=== PATIENT | female | born 1955 | race Caucasian/White ===

== ENCOUNTER → 2017-08-26 | Day surgery (SDC) | payer BC ==
[~2017-08-26] MED LIST: ACETAMINOPHEN 1000 MG/100 ML 100 ML IV ONE; BUPIVACAINE/EPINEPHRINE 0.25% PF 30 ML VIAL ONE; KETOROLAC TROMETHAMINE 30 MG/ML (IVP) VIAL IV PUSH ONE; LACTATED RINGER'S 1000 ML INJ 1,000 ML ONE; LIDOCAINE 2%/EPINEPHrine PF 1:200,000 20ML SDV ONE; MIDAZOLAM HCL 2 MG/2 ML VIAL ONE; ONDANSETRON HCL 4 MG/2 ML VIAL IV PUSH ONE; PROPOFOL 200 MG/20 ML AMP IV ONE; VANCOMYCIN HCL 1000 MG VIAL ONE
--- NOTE | 2017-08-26 10:15 | TN ---
cc: ZHAO SOOD M.D. DATE OF SURGERY 08/26/2017 PREOPERATIVE DIAGNOSES 1. Umbilical hernia. 2. Deep subcutaneous masses right upper abdomen. 3. Three deep subcutaneous masses left upper abdomen and left flank, all measuring 3 cm piece. POSTOPERATIVE DIAGNOSES 1. Umbilical hernia. 2. Deep subcutaneous masses right upper abdomen. 3. Three deep subcutaneous masses left upper abdomen and left flank, all measuring 3 cm piece. PROCEDURE 1. Excision of two masses in the left upper quadrant and one in the left flank, 3 cm each. 2. Excision of deep subcutaneous masses right upper quadrant, 3 cm each. 3. Repair of umbilical hernia, primary closure. ANESTHESIA General. SURGEON Dr. Sood INDICATIONS This is a pleasant 62-year-old female who has fairly symptomatic deep subcutaneous masses. They are along her waistline and are growing and quite bothersome to her. She also has a symptomatic umbilical hernia. Plans were made for repair. PROCEDURE The patient was taken to the operating room, placed in supine position. After anesthesia she was placed on the operating table. A bump was placed under her left flank to expose the lateral left flank deep subcutaneous mass that measures about 3 cm. After prepping and draping with Betadine the complete abdomen, we then do a time-out after antibiotics were given. The deep subcutaneous mass measuring 3 cm had been previously marked in the holding area and we anesthetized it with a Marcaine solution, make a 2.5 cm linear incision overlying the 3-cm deep subcutaneous mass and this is carefully teased around from the deep tissue. The 3 cm mass was then excised completely and passed off the field. We then closed the deep layer with 3-0 Vicryl. The skin was closed with 4-0 Vicryl. We then directed our attention to the left upper quadrant masses. We make an incision in between the two masses where we can excise two of these separate masses that measure 3 cm each; one is more medial than the other one which is lateral. Each of these measured 3 cm and the incision is made about 3 cm so we can gain access through this incision to remove the two separate deep subcutaneous masses that measured approximately 3 cm. These were enucleated out and the blood supply was cauterized with electrocautery device. The deep layer is then closed with 3-0 Vicryl and the skin is closed with a 4-0 Vicryl. We then direct our attention to the right upper quadrant and deep subcutaneous masses each measuring 3 cm. At the more lateral one, a 2.5-cm incision is made after localizing with Marcaine solution. We dissect down to the deep subcutaneous tissue excising the deep subcutaneous mass measuring 3 cm, completely removing this and this is passed off the field. We then close the deep tissue with 3-0 Vicryl and skin with 4-0 Vicryl. The more medial mass is then identified and had been previously marked as well, anesthetized with Marcaine solution. We make an incision overlying the apex of this mass and the deep subcutaneous mass then excised completely and passed off the field. We closed the deep layer with 3-0 Vicryl and the skin was closed with 4-0 Vicryl. We then direct our attention to the umbilical hernia. A curvilinear incision is made at the umbilicus, dissect down to the deep tissue, identifying the hernia sac which is excised. The omentum is completely reduced. The defect measures approximately 1 cm. It is closed with Ethibond interrupted suture to reapproximate the fascia in a horizontal fashion. Once this is done the deep tissue is then reapproximated with 3-0 Vicryl and the skin is closed with 4-0 Vicryl. All wounds are then covered with sterile bandage after Steri-Strips. The patient tolerated the procedure well and had no immediate postop complications. Zhao Sood MD JDB/SSB /9:30 AM /9:54 AM
== END | disposition home or self-care (01) ==
LOC: ESDC 06:49
PROVIDERS: ATTEND Surgery
DX: K42.9 Umbilical hernia without obstruction or gangrene (principal); D17.1 Benign lipomatous neoplasm of skin and subcutaneous tissue of trunk
CPT/HCPCS: 00300; 00700; 00750; 21931; 22900; 49585; 88304; J0131; J1885; J2250; J2405; J3370; J7120; 88305; J3010